=== PATIENT | male | born 1960 | race Caucasian/White ===

== ENCOUNTER 2017-01-14 08:20 | Day surgery (SDC) | payer BC ==
[~2017-01-14] VITALS: Ht 167.6 cm; Wt 47.7 kg
[2017-01-14 08:50] VITALS: BP 204/101; PULSE 78; TEMP 97.5
[2017-01-14] MEDS ORDERED: SPIRIVA RESPIMAT4 GM IH (08:58)
[2017-01-14] MEDS ORDERED: PRINZIDE 25 MG-1 TAB PO (08:58)
[2017-01-14] MEDS ORDERED: MULTI VITAMINS1 TAB PO (08:58)
[2017-01-14] MEDS ORDERED: MASON NATURAL1200 MG PO (08:59)
[2017-01-14] MEDS ORDERED: ADVIL200 MG PO (08:59)
[2017-01-14] MEDS ORDERED: EXCEDRIN1 TAB PO (09:00)
[2017-01-14] MEDS ORDERED: ZANTAC 150150 MG PO (09:00)
[2017-01-14] MEDS ORDERED: SUDAFED 12 HOU120 MG PO (09:02)
[2017-01-14 10:40] VITALS: BP 168/82; PULSE 70
[2017-01-14 10:55] VITALS: BP 147/92; PULSE 77
[2017-01-14 11:10] VITALS: BP 136/83; PULSE 79
[2017-01-14 12:36] LABS: BRONCH WASH POLY - PMN 22 % (0-25)
[2017-01-14 12:37] LABS: BRONCH WASH FLUID MONONUCLEAR 78 % (0-75)
== END 2017-01-14 11:18 | disposition home or self-care (01) ==
LOC: SDCO 08:20
PROVIDERS: Internal Medicine Pulmonary Disease
DX: R06.02 Shortness of breath (principal); R05 Cough; J90 Pleural effusion, not elsewhere classified; Z87.891 Personal history of nicotine dependence; J44.9 Chronic obstructive pulmonary disease, unspecified; Z87.01 Personal history of pneumonia (recurrent); Z79.899 Other long term (current) drug therapy; Z79.82 Long term (current) use of aspirin
CPT/HCPCS: J2704; J7120